=== PATIENT | male | born 1970 | race Asian ===

== ENCOUNTER 2019-10-01 01:08 | Emergency (ER) | payer OTHER ==
[~2019-10-01] VITALS: Ht 167.6 cm; Wt 95.3 kg
[2019-10-01 01:11] VITALS: BP 141/82
--- NOTE | 2019-10-02 02:09 | NUR ---
LAB CALLED REGARDING COVID NEGATIVE RESULT
== END 2019-10-01 01:52 | disposition home or self-care (01) ==
LOC: ER 01:10
DX: Z03.818 Encounter for observation for suspected exposure to other biological agents ruled out (principal)
CPT/HCPCS: 99283; U0003

== ENCOUNTER 2019-10-27 00:47 | Emergency (ER) | payer OTHER ==
[~2019-10-27] VITALS: Ht 167.6 cm; Wt 95.3 kg
--- NOTE | 2019-10-28 22:56 | NUR ---
RECEIVED CALL FROM LAB REGARDING COVID TEST. PT NEGATIVE.
== END 2019-10-27 02:03 | disposition home or self-care (01) ==
LOC: ER 00:49
DX: Z03.818 Encounter for observation for suspected exposure to other biological agents ruled out (principal)
CPT/HCPCS: 99283; C9803; U0003

== ENCOUNTER 2019-11-04 00:46 | Emergency (ER) | payer OTHER ==
[~2019-11-04] VITALS: Ht 167.6 cm; Wt 95.3 kg
[2019-11-04 00:47] VITALS: BP 138/85
== END 2019-11-04 01:05 | disposition home or self-care (01) ==
LOC: ER 00:49
DX: Z11.59 Encounter for screening for other viral diseases (principal)
CPT/HCPCS: 99283; C9803; U0003

== ENCOUNTER 2019-11-18 01:02 | Emergency (ER) | payer OTHER ==
[~2019-11-18] VITALS: Ht 167.6 cm; Wt 95.3 kg
[2019-11-18 01:09] VITALS: BP 129/68
--- NOTE | 2019-11-18 01:31 | NUR ---
COVID SWAB SENT TO LAB
== END 2019-11-18 01:32 | disposition home or self-care (01) ==
LOC: ER 01:03
DX: Z03.818 Encounter for observation for suspected exposure to other biological agents ruled out (principal)
CPT/HCPCS: 99283; C9803; U0003

== ENCOUNTER 2019-11-25 02:15 | Emergency (ER) | payer OTHER ==
[~2019-11-25] VITALS: Ht 167.6 cm; Wt 95.3 kg
[2019-11-25 02:20] VITALS: BP 133/84
== END 2019-11-25 02:34 | disposition home or self-care (01) ==
LOC: ER 02:15
DX: Z11.59 Encounter for screening for other viral diseases (principal)
CPT/HCPCS: 99283; C9803; U0003

== ENCOUNTER 2019-12-02 00:55 | Emergency (ER) | payer OTHER ==
[~2019-12-02] VITALS: Ht 167.6 cm; Wt 95.3 kg
[2019-12-02 00:56] VITALS: BP 127/62
--- NOTE | 2019-12-02 01:32 | NUR ---
COVID SWAB DONE AND SENT TO LAB.
== END 2019-12-02 01:37 | disposition home or self-care (01) ==
LOC: ER 00:56
DX: Z11.59 Encounter for screening for other viral diseases (principal)
CPT/HCPCS: 99283; C9803; U0003

== ENCOUNTER 2019-12-09 00:36 | Emergency (ER) | payer OTHER ==
[~2019-12-09] VITALS: Ht 167.6 cm; Wt 95.3 kg
[2019-12-09 00:39] VITALS: BP 133/85
--- NOTE | 2019-12-09 01:03 | NUR ---
COVID TEST SENT TO LAB
== END 2019-12-09 01:04 | disposition home or self-care (01) ==
LOC: ER 00:37
DX: Z20.828 Contact with and (suspected) exposure to other viral communicable diseases (principal)
CPT/HCPCS: 99283; C9803; U0003

== ENCOUNTER 2019-12-23 01:25 | Emergency (ER) | payer OTHER ==
[~2019-12-23] VITALS: Ht 167.6 cm; Wt 95.3 kg
[2019-12-23 01:26] VITALS: BP 124/62
--- NOTE | 2019-12-23 01:50 | NUR ---
COVID SWAB DONE AND SENT TO LAB.
== END 2019-12-23 01:50 | disposition home or self-care (01) ==
LOC: ER 01:26
DX: Z20.828 Contact with and (suspected) exposure to other viral communicable diseases (principal)
CPT/HCPCS: 99283; C9803; U0003

== ENCOUNTER 2020-01-20 00:22 | Emergency (ER) | payer OTHER | END 2020-01-20 00:46 | disposition home or self-care (01) | DX: Z20.828 Contact with and (suspected) exposure to other viral communicable diseases (principal) | CPT/HCPCS: 99283; C9803; U0003 ==

== ENCOUNTER 2020-01-28 01:32 | Emergency (ER) | payer OTHER ==
[~2020-01-28] VITALS: Ht 167.6 cm; Wt 95.3 kg
[2020-01-28 01:33] VITALS: BP 132/69
== END 2020-01-28 01:46 | disposition home or self-care (01) ==
LOC: ER 01:32
DX: Z20.828 Contact with and (suspected) exposure to other viral communicable diseases (principal)
CPT/HCPCS: 99283; C9803; U0003

== ENCOUNTER 2020-02-03 00:23 | Emergency (ER) | payer OTHER ==
[~2020-02-03] VITALS: Ht 167.6 cm; Wt 95.3 kg
[2020-02-03 00:26] VITALS: BP 132/61
== END 2020-02-03 01:25 | disposition home or self-care (01) ==
LOC: ER 00:29
DX: Z20.828 Contact with and (suspected) exposure to other viral communicable diseases (principal)
CPT/HCPCS: 99283; C9803; U0003

== ENCOUNTER 2020-02-10 01:01 | Emergency (ER) | payer OTHER ==
[~2020-02-10] VITALS: Ht 167.6 cm; Wt 95.3 kg
[2020-02-10 01:04] VITALS: BP 137/89
== END 2020-02-10 01:15 | disposition home or self-care (01) ==
LOC: ER 01:04
DX: Z20.828 Contact with and (suspected) exposure to other viral communicable diseases (principal)
CPT/HCPCS: 99283; C9803; U0003

== ENCOUNTER 2020-02-17 00:36 | Emergency (ER) | payer OTHER ==
[~2020-02-17] VITALS: Ht 167.6 cm; Wt 95.3 kg
[2020-02-17 00:37] VITALS: BP 132/64
--- NOTE | 2020-02-17 00:55 | NUR ---
covid swab sent to lab
== END 2020-02-17 00:56 | disposition home or self-care (01) ==
LOC: ER 00:38
DX: Z20.828 Contact with and (suspected) exposure to other viral communicable diseases (principal)
CPT/HCPCS: 99283; C9803; U0003

== ENCOUNTER 2020-02-24 00:35 | Emergency (ER) | payer OTHER ==
[~2020-02-24] VITALS: Ht 167.6 cm; Wt 95.3 kg
[2020-02-24 00:41] VITALS: BP 141/85
--- NOTE | 2020-02-24 00:46 | NUR ---
COVID SWAB COLLECTED AND SENT TO THE LAB.
== END 2020-02-24 00:47 | disposition home or self-care (01) ==
LOC: ER 00:36
DX: Z20.828 Contact with and (suspected) exposure to other viral communicable diseases (principal)
CPT/HCPCS: 99283; C9803; U0003

== ENCOUNTER 2020-03-01 22:59 | Emergency (ER) | payer OTHER ==
[~2020-03-01] VITALS: Ht 167.6 cm; Wt 95.3 kg
[2020-03-01 23:04] VITALS: BP 132/64
== END 2020-03-01 23:16 | disposition home or self-care (01) ==
LOC: ER 23:00
DX: Z20.828 Contact with and (suspected) exposure to other viral communicable diseases (principal)
CPT/HCPCS: 99283; C9803; U0003

== ENCOUNTER 2020-03-08 22:35 | Emergency (ER) | payer OTHER ==
[~2020-03-08] VITALS: Ht 167.6 cm; Wt 95.3 kg
[2020-03-08 22:37] VITALS: BP 138/77
== END 2020-03-08 23:06 | disposition home or self-care (01) ==
LOC: ER 22:40
DX: Z20.828 Contact with and (suspected) exposure to other viral communicable diseases (principal)
CPT/HCPCS: 99283; C9803; U0003

== ENCOUNTER 2020-03-16 01:12 | Emergency (ER) | payer OTHER ==
[~2020-03-16] VITALS: Ht 167.6 cm; Wt 95.3 kg
[2020-03-16 01:16] VITALS: BP 134/82
== END 2020-03-16 01:35 | disposition home or self-care (01) ==
LOC: ER 01:13
DX: Z20.828 Contact with and (suspected) exposure to other viral communicable diseases (principal)
CPT/HCPCS: 99283; C9803; U0003

== ENCOUNTER 2020-03-23 01:58 | Emergency (ER) | payer OTHER ==
[~2020-03-23] VITALS: Ht 167.6 cm; Wt 95.3 kg
[2020-03-23 01:58] VITALS: BP 122/61
== END 2020-03-23 02:28 | disposition home or self-care (01) ==
LOC: ER 01:59
DX: Z20.828 Contact with and (suspected) exposure to other viral communicable diseases (principal)
CPT/HCPCS: 99283; C9803; U0003

== ENCOUNTER 2020-03-30 00:19 | Emergency (ER) | payer OTHER ==
[~2020-03-30] VITALS: Ht 167.6 cm; Wt 95.3 kg
[2020-03-30 00:20] VITALS: BP 127/68
== END 2020-03-30 00:43 | disposition home or self-care (01) ==
LOC: ER 00:20
DX: Z20.828 Contact with and (suspected) exposure to other viral communicable diseases (principal)
CPT/HCPCS: 99283; C9803; U0003

== ENCOUNTER 2020-04-06 00:50 | Emergency (ER) | payer OTHER ==
[~2020-04-06] VITALS: Ht 167.6 cm; Wt 95.3 kg
[2020-04-06 00:57] VITALS: BP 141/85
== END 2020-04-06 01:49 | disposition home or self-care (01) ==
LOC: ER 00:51
DX: Z20.828 Contact with and (suspected) exposure to other viral communicable diseases (principal)
CPT/HCPCS: 99283; C9803; U0003

== ENCOUNTER 2020-04-13 04:07 | Emergency (ER) | payer OTHER ==
[~2020-04-13] VITALS: Ht 167.6 cm; Wt 90.7 kg
[2020-04-13 04:12] VITALS: BP 134/82
== END 2020-04-13 04:18 | disposition home or self-care (01) ==
LOC: ER 04:10
DX: Z20.828 Contact with and (suspected) exposure to other viral communicable diseases (principal)
CPT/HCPCS: 99283; C9803; U0003

== ENCOUNTER 2020-04-19 01:22 | Emergency (ER) | payer OTHER ==
[~2020-04-19] VITALS: Ht 167.6 cm; Wt 90.7 kg
[2020-04-19 01:26] VITALS: BP 138/61
--- NOTE | 2020-04-19 01:46 | NUR ---
COVID SWAB SAMPLE COLLECTED AND SENT TO THE LAB.
== END 2020-04-19 01:52 | disposition home or self-care (01) ==
LOC: ER 01:26
DX: Z20.828 Contact with and (suspected) exposure to other viral communicable diseases (principal)
CPT/HCPCS: 99283; C9803; U0003

== ENCOUNTER 2020-04-21 02:58 | Emergency (ER) | payer OTHER ==
[~2020-04-21] VITALS: Ht 167.6 cm; Wt 90.7 kg
[2020-04-21 03:04] VITALS: BP 132/64
== END 2020-04-21 03:48 | disposition home or self-care (01) ==
LOC: ER 03:04
DX: Z20.828 Contact with and (suspected) exposure to other viral communicable diseases (principal)
CPT/HCPCS: 99283; C9803; U0003

== ENCOUNTER 2020-04-26 01:36 | Emergency (ER) | payer OTHER ==
[~2020-04-26] VITALS: Ht 167.6 cm; Wt 90.7 kg
[2020-04-26 01:44] VITALS: BP 135/64
== END 2020-04-26 01:57 | disposition home or self-care (01) ==
LOC: ER 01:49
DX: Z20.828 Contact with and (suspected) exposure to other viral communicable diseases (principal)
CPT/HCPCS: 99283; C9803; U0003

== ENCOUNTER 2020-04-28 00:02 | Emergency (ER) | payer OTHER ==
[~2020-04-28] VITALS: Ht 170.2 cm; Wt 90.7 kg
[2020-04-28 00:08] VITALS: BP 125/66
--- NOTE | 2020-04-29 02:03 | NUR ---
LAB CALLED REGARDING NEGATIVE COVID RESULT.
== END 2020-04-28 00:34 | disposition home or self-care (01) ==
LOC: ER 00:10
DX: Z20.828 Contact with and (suspected) exposure to other viral communicable diseases (principal)
CPT/HCPCS: 99283; C9803; U0003

== ENCOUNTER 2020-05-03 05:25 | Emergency (ER) | payer OTHER ==
[~2020-05-03] VITALS: Ht 170.2 cm; Wt 90.7 kg
[2020-05-03 05:29] VITALS: BP 127/76
== END 2020-05-03 05:47 | disposition home or self-care (01) ==
LOC: ER 05:26
DX: Z20.828 Contact with and (suspected) exposure to other viral communicable diseases (principal)
CPT/HCPCS: 99283; C9803; U0003

== ENCOUNTER 2020-05-05 01:14 | Emergency (ER) | payer OTHER ==
[~2020-05-05] VITALS: Ht 170.2 cm; Wt 90.7 kg
[2020-05-05 01:18] VITALS: BP 150/79
== END 2020-05-05 01:22 | disposition home or self-care (01) ==
LOC: ER 01:18
DX: Z20.822 Contact with and (suspected) exposure to COVID-19 (principal)
CPT/HCPCS: 99283; C9803; U0003

== ENCOUNTER 2020-05-10 03:12 | Emergency (ER) | payer OTHER ==
[~2020-05-10] VITALS: Ht 170.2 cm; Wt 90.7 kg
[2020-05-10 03:17] VITALS: BP 137/85
== END 2020-05-10 03:41 | disposition home or self-care (01) ==
LOC: ER 03:16
DX: Z20.822 Contact with and (suspected) exposure to COVID-19 (principal)
CPT/HCPCS: 99283; C9803; U0003

== ENCOUNTER 2020-05-12 01:26 | Emergency (ER) | payer OTHER ==
[~2020-05-12] VITALS: Ht 170.2 cm; Wt 90.7 kg
[2020-05-12 01:28] VITALS: BP 132/67
== END 2020-05-12 01:48 | disposition home or self-care (01) ==
LOC: ER 01:30
DX: Z20.822 Contact with and (suspected) exposure to COVID-19 (principal)
CPT/HCPCS: 99283; C9803; U0003

== ENCOUNTER 2020-05-17 00:54 | Emergency (ER) | payer OTHER ==
[~2020-05-17] VITALS: Ht 167.6 cm; Wt 79.8 kg
[2020-05-17 00:56] VITALS: BP 126/72
== END 2020-05-17 01:31 | disposition home or self-care (01) ==
LOC: ER 01:03
DX: Z20.822 Contact with and (suspected) exposure to COVID-19 (principal)
CPT/HCPCS: 99283; C9803; U0003

== ENCOUNTER 2020-05-18 23:47 | Emergency (ER) | payer OTHER ==
[~2020-05-18] VITALS: Ht 167.6 cm; Wt 79.8 kg
[2020-05-19] VITALS: BP 128/77
== END 2020-05-19 00:02 | disposition home or self-care (01) ==
LOC: ER 23:52
DX: Z20.822 Contact with and (suspected) exposure to COVID-19 (principal)
CPT/HCPCS: 99283; C9803; U0003

== ENCOUNTER 2020-05-24 01:08 | Emergency (ER) | payer OTHER ==
[~2020-05-24] VITALS: Ht 167.6 cm; Wt 83.5 kg
[2020-05-24 01:12] VITALS: BP 127/76
== END 2020-05-24 01:51 | disposition home or self-care (01) ==
LOC: ER 01:12
DX: Z20.822 Contact with and (suspected) exposure to COVID-19 (principal)
CPT/HCPCS: 99283; C9803; U0003

== ENCOUNTER 2020-05-26 00:59 | Emergency (ER) | payer OTHER ==
[~2020-05-26] VITALS: Ht 167.6 cm; Wt 90.7 kg
[2020-05-26 01:04] VITALS: BP 128/67
== END 2020-05-26 01:26 | disposition home or self-care (01) ==
LOC: ER 01:02
DX: Z20.822 Contact with and (suspected) exposure to COVID-19 (principal)
CPT/HCPCS: 99283; C9803; U0003

== ENCOUNTER 2020-05-31 02:35 | Emergency (ER) | payer OTHER ==
[~2020-05-31] VITALS: Ht 167.6 cm; Wt 90.7 kg
[2020-05-31 02:35] VITALS: BP 134/60
== END 2020-05-31 03:08 | disposition home or self-care (01) ==
LOC: ER 02:38
DX: Z20.822 Contact with and (suspected) exposure to COVID-19 (principal)
CPT/HCPCS: 99283; C9803; U0003

== ENCOUNTER 2020-06-02 00:35 | Emergency (ER) | payer OTHER ==
[~2020-06-02] VITALS: Ht 167.6 cm; Wt 78.5 kg
[2020-06-02 00:37] VITALS: BP 127/73
== END 2020-06-02 01:42 | disposition home or self-care (01) ==
LOC: ER 00:41
DX: Z20.822 Contact with and (suspected) exposure to COVID-19 (principal)
CPT/HCPCS: 99283; C9803; U0003

== ENCOUNTER 2020-06-08 00:39 | Emergency (ER) | payer OTHER ==
[~2020-06-08] VITALS: Ht 167.6 cm; Wt 78.5 kg
[2020-06-08 00:45] VITALS: BP 134/80
== END 2020-06-08 01:17 | disposition home or self-care (01) ==
LOC: ER 00:44
DX: Z20.822 Contact with and (suspected) exposure to COVID-19 (principal)
CPT/HCPCS: 99283; C9803; U0003

== ENCOUNTER 2020-06-09 00:14 | Emergency (ER) | payer OTHER ==
[~2020-06-09] VITALS: Ht 167.6 cm; Wt 77.6 kg
[2020-06-09 00:21] VITALS: BP 121/77
== END 2020-06-09 01:13 | disposition home or self-care (01) ==
LOC: ER 00:18
DX: Z20.822 Contact with and (suspected) exposure to COVID-19 (principal)
CPT/HCPCS: 99283; C9803; U0003

== ENCOUNTER 2020-06-15 01:16 | Emergency (ER) | payer OTHER ==
[~2020-06-15] VITALS: Ht 167.6 cm; Wt 77.6 kg
[2020-06-15 01:20] VITALS: BP 139/77
== END 2020-06-15 01:54 | disposition home or self-care (01) ==
LOC: ER 01:20
DX: Z20.822 Contact with and (suspected) exposure to COVID-19 (principal)
CPT/HCPCS: 99283; C9803; U0003

== ENCOUNTER 2020-06-16 00:30 | Emergency (ER) | payer OTHER ==
[~2020-06-16] VITALS: Ht 167.6 cm; Wt 77.6 kg
[2020-06-16 00:34] VITALS: BP 134/85
== END 2020-06-16 01:18 | disposition home or self-care (01) ==
LOC: ER 00:35
DX: Z20.822 Contact with and (suspected) exposure to COVID-19 (principal)
CPT/HCPCS: 99283; C9803; U0003

== ENCOUNTER 2020-06-21 00:36 | Emergency (ER) | payer OTHER ==
[~2020-06-21] VITALS: Ht 167.6 cm; Wt 77.6 kg
[2020-06-21 00:39] VITALS: BP 134/79
== END 2020-06-21 01:15 | disposition home or self-care (01) ==
LOC: ER 00:42
DX: Z20.822 Contact with and (suspected) exposure to COVID-19 (principal)
CPT/HCPCS: 99283; C9803; U0003

== ENCOUNTER 2020-06-29 01:06 | Emergency (ER) | payer OTHER ==
[~2020-06-29] VITALS: Ht 167.6 cm; Wt 77.1 kg
[2020-06-29 01:23] VITALS: BP 127/76
== END 2020-06-29 02:03 | disposition home or self-care (01) ==
LOC: ER 01:16
DX: Z20.822 Contact with and (suspected) exposure to COVID-19 (principal)
CPT/HCPCS: 99283; C9803; U0003

== ENCOUNTER 2020-07-06 01:16 | Emergency (ER) | payer OTHER ==
[~2020-07-06] VITALS: Ht 167.6 cm; Wt 77.6 kg
[2020-07-06 01:18] VITALS: BP 124/73
== END 2020-07-06 01:57 | disposition home or self-care (01) ==
LOC: ER 01:19
DX: Z20.822 Contact with and (suspected) exposure to COVID-19 (principal)
CPT/HCPCS: 99283; C9803; U0003

== ENCOUNTER 2020-07-12 01:04 | Emergency (ER) | payer OTHER ==
[~2020-07-12] VITALS: Ht 167.6 cm; Wt 77.6 kg
[2020-07-12 01:06] VITALS: BP 119/68
== END 2020-07-12 05:03 | disposition home or self-care (01) ==
LOC: ER 01:09
DX: Z20.822 Contact with and (suspected) exposure to COVID-19 (principal)
CPT/HCPCS: 99283; C9803; U0003

== ENCOUNTER 2020-07-18 23:18 | Emergency (ER) | payer OTHER ==
[~2020-07-18] VITALS: Ht 167.6 cm; Wt 77.6 kg
[2020-07-18 23:19] VITALS: BP 141/82
== END 2020-07-18 23:50 | disposition home or self-care (01) ==
LOC: ER 23:18
DX: Z20.822 Contact with and (suspected) exposure to COVID-19 (principal)
CPT/HCPCS: 99283; C9803; U0003

== ENCOUNTER 2020-07-26 02:27 | Emergency (ER) | payer OTHER ==
[~2020-07-26] VITALS: Ht 167.6 cm; Wt 77.6 kg
[2020-07-26 02:27] VITALS: BP 121/65
== END 2020-07-26 02:59 | disposition home or self-care (01) ==
LOC: ER 02:32
DX: Z20.822 Contact with and (suspected) exposure to COVID-19 (principal)
CPT/HCPCS: 99283; C9803; U0003

== ENCOUNTER 2020-08-02 02:49 | Emergency (ER) | payer OTHER ==
[~2020-08-02] VITALS: Ht 167.6 cm; Wt 77.6 kg
[2020-08-02 02:54] VITALS: BP 141/82
== END 2020-08-02 03:15 | disposition home or self-care (01) ==
LOC: ER 02:55
DX: Z20.822 Contact with and (suspected) exposure to COVID-19 (principal)
CPT/HCPCS: 99283; C9803; U0003

== ENCOUNTER 2020-08-09 02:35 | Emergency (ER) | payer OTHER ==
[~2020-08-09] VITALS: Ht 167.6 cm; Wt 77.6 kg
[2020-08-09 02:36] VITALS: BP 131/85
== END 2020-08-09 03:23 | disposition home or self-care (01) ==
LOC: ER 02:47
DX: Z20.822 Contact with and (suspected) exposure to COVID-19 (principal)
CPT/HCPCS: 99283; C9803; U0003

== ENCOUNTER 2020-08-24 01:00 | Emergency (ER) | payer OTHER ==
[~2020-08-24] VITALS: Ht 167.6 cm; Wt 77.1 kg
[2020-08-24 01:04] VITALS: BP 132/64
== END 2020-08-24 01:34 | disposition home or self-care (01) ==
LOC: ER 01:01
DX: Z20.822 Contact with and (suspected) exposure to COVID-19 (principal)
CPT/HCPCS: 99283; C9803; U0003

== ENCOUNTER 2020-08-30 00:47 | Emergency (ER) | payer OTHER ==
[~2020-08-30] VITALS: Ht 167.6 cm; Wt 77.1 kg
[2020-08-30 00:47] VITALS: BP 123/75
== END 2020-08-30 02:25 | disposition home or self-care (01) ==
LOC: ER 00:52
DX: Z20.822 Contact with and (suspected) exposure to COVID-19 (principal)
CPT/HCPCS: 99283; C9803; U0003

== ENCOUNTER 2020-09-05 23:43 | Emergency (ER) | payer OTHER ==
[~2020-09-05] VITALS: Ht 167.6 cm; Wt 80.3 kg
[2020-09-05 23:50] VITALS: BP 128/75
== END 2020-09-06 00:35 | disposition home or self-care (01) ==
LOC: ER 23:48
DX: Z20.822 Contact with and (suspected) exposure to COVID-19 (principal)
CPT/HCPCS: 99283; C9803; U0003

== ENCOUNTER 2020-09-13 00:31 | Emergency (ER) | payer OTHER ==
[~2020-09-13] VITALS: Ht 167.6 cm; Wt 77.1 kg
[2020-09-13 00:31] VITALS: BP 120/74
== END 2020-09-13 01:57 | disposition home or self-care (01) ==
LOC: ER 00:36
DX: Z20.822 Contact with and (suspected) exposure to COVID-19 (principal)
CPT/HCPCS: 99283; C9803; U0003

== ENCOUNTER 2020-09-20 02:45 | Emergency (ER) | payer OTHER ==
[~2020-09-20] VITALS: Ht 167.6 cm; Wt 77.1 kg
[2020-09-20 02:57] VITALS: BP 115/63
== END 2020-09-20 03:47 | disposition home or self-care (01) ==
LOC: ER 02:52
DX: Z20.822 Contact with and (suspected) exposure to COVID-19 (principal)
CPT/HCPCS: 99283; C9803; U0003

== ENCOUNTER 2020-09-27 03:24 | Emergency (ER) | payer OTHER ==
[~2020-09-27] VITALS: Ht 165.1 cm; Wt 77.6 kg
[2020-09-27 03:38] VITALS: BP 121/69
== END 2020-09-27 03:56 | disposition home or self-care (01) ==
LOC: ER 03:28
DX: Z20.822 Contact with and (suspected) exposure to COVID-19 (principal)
CPT/HCPCS: 99283; C9803; U0003

== ENCOUNTER 2020-10-05 00:08 | Emergency (ER) | payer OTHER ==
[~2020-10-05] VITALS: Ht 165.1 cm; Wt 77.6 kg
[2020-10-05 00:12] VITALS: BP 133/84
== END 2020-10-05 00:19 | disposition home or self-care (01) ==
LOC: ER 00:09
DX: Z20.822 Contact with and (suspected) exposure to COVID-19 (principal)
CPT/HCPCS: 99283; C9803; U0003

== ENCOUNTER 2020-10-11 02:25 | Emergency (ER) | payer OTHER ==
[~2020-10-11] VITALS: Ht 165.1 cm; Wt 77.1 kg
[2020-10-11 02:32] VITALS: BP 131/64
== END 2020-10-11 03:26 | disposition home or self-care (01) ==
LOC: ER 02:32
DX: Z20.822 Contact with and (suspected) exposure to COVID-19 (principal)
CPT/HCPCS: 99283; C9803; U0003

== ENCOUNTER 2020-10-19 00:32 | Emergency (ER) | payer OTHER ==
[~2020-10-19] VITALS: Ht 167.6 cm; Wt 95.3 kg
[2020-10-19 00:40] VITALS: BP 114/85
== END 2020-10-19 00:56 | disposition home or self-care (01) ==
LOC: ER 00:33
DX: Z20.822 Contact with and (suspected) exposure to COVID-19 (principal)
CPT/HCPCS: 99283; C9803; U0003

== ENCOUNTER 2021-01-10 22:52 | Emergency (ER) | payer OTHER ==
[~2021-01-10] VITALS: Ht 165.1 cm; Wt 77.1 kg
[2021-01-10 23:32] VITALS: BP 133/67
== END 2021-01-10 23:50 | disposition home or self-care (01) ==
LOC: ER 22:53
DX: Z20.822 Contact with and (suspected) exposure to COVID-19 (principal)
CPT/HCPCS: 99283; C9803; U0003

== ENCOUNTER 2021-01-17 02:00 | Emergency (ER) | payer OTHER ==
[~2021-01-17] VITALS: Ht 167.6 cm; Wt 95.3 kg
[2021-01-17 02:07] VITALS: BP 116/75
== END 2021-01-17 02:22 | disposition home or self-care (01) ==
LOC: ER 02:06
DX: Z20.822 Contact with and (suspected) exposure to COVID-19 (principal)
CPT/HCPCS: 99283; C9803; U0003